=== PATIENT | male | born 1935 | race Native Hawaiian/Other Pacific Islander ===

== ENCOUNTER 2017-06-23 09:34 | Outpatient (CLI) | payer OTHER ==
[2017-06-23 09:52] LABS: PLATELET COUNT 127 K/uL (142-355)
[2017-06-23 10:06] LABS: POTASSIUM 4.2 mmol/L (3.6-5.2); SODIUM 140 mmol/L (136-145)
== END 2017-06-23 10:35 | disposition home or self-care (01) ==
LOC: LABW 09:34
PROVIDERS: Internal Medicine Rheumatology
DX: M19.012 Primary osteoarthritis, left shoulder (principal); M75.42 Impingement syndrome of left shoulder; Z79.899 Other long term (current) drug therapy; M06.89 Other specified rheumatoid arthritis, multiple sites; Z51.81 Encounter for therapeutic drug level monitoring
CPT/HCPCS: 36415; 80053; 85027; 86140

== ENCOUNTER 2017-11-03 10:36 | Outpatient (CLI) | payer OTHER ==
[2017-11-03 11:15] LABS: PLATELET COUNT 117 K/uL (142-355)
[2017-11-03 11:45] LABS: POTASSIUM 4.1 mmol/L (3.6-5.2)
== END 2017-11-03 22:17 | disposition home or self-care (01) ==
LOC: LABW 10:36
PROVIDERS: Internal Medicine Rheumatology
DX: M06.89 Other specified rheumatoid arthritis, multiple sites (principal); Z79.899 Other long term (current) drug therapy; Z51.81 Encounter for therapeutic drug level monitoring
CPT/HCPCS: 36415; 80053; 85027; 86140

== ENCOUNTER 2018-02-08 08:39 | Outpatient (CLI) | payer OTHER ==
[2018-02-08 09:04] LABS: PLATELET COUNT 154 K/uL (142-355)
[2018-02-08 09:56] LABS: POTASSIUM 3.8 mmol/L (3.6-5.2)
== END 2018-02-08 21:50 | disposition home or self-care (01) ==
LOC: LABW 08:39
PROVIDERS: Internal Medicine Rheumatology
DX: M06.89 Other specified rheumatoid arthritis, multiple sites (principal); Z79.899 Other long term (current) drug therapy; M75.42 Impingement syndrome of left shoulder; M19.012 Primary osteoarthritis, left shoulder; Z11.1 Encounter for screening for respiratory tuberculosis
CPT/HCPCS: 36415; 80053; 85027; 86140